=== PATIENT | male | born 1970 | race Two or more races ===

== ENCOUNTER 2017-05-17 19:10 | Emergency (ER) | payer SELFPAY ==
[~2017-05-17] VITALS: Ht 170.2 cm; Wt 83.0 kg
[2017-05-17 19:49] LABS: Urine Bacteria NONE SEEN /hpf (None Seen); Urine Blood Negative /uL (Negative); Urine Specific Gravity 1.014 (1.001-1.035); Urine WBC <1 /hpf (0 - 3)
[2017-05-17] MEDS ORDERED: KETOROLAC TROMETH 60MG/2ML VIAL IM ONE (23:30)
[2017-05-17 23:57] VITALS: BP 136/89
== END 2017-05-18 | disposition home or self-care (01) ==
LOC: ER 19:10
DX: N43.3 Hydrocele, unspecified (principal)
CPT/HCPCS: 76870; 81001; 96372